=== PATIENT | female | born 1960 | race African-American/Black ===

== ENCOUNTER 2020-11-25 08:47 | Outpatient (CLI) | payer BC, SELFPAY ==
--- NOTE | 2020-11-25 08:54 | MM_ITS ---
WS: [id number] Bilateral screening digital mammogram, 11/25/2020 Clinical Data: SCREENING Comparison: 11/25/2017, 04/22/2015. Findings: The breast parenchymal pattern shows heterogeneous density No spiculated masses or clustered calcific ations are seen. There are no secondary signs of carcinoma. There are mole markers on both breasts. T here are small bilateral axillary lymph nodes. MM/[id number] Impression: 1. Negative bilateral mammogram unchanged. 2. Recommend annual screening mammograms. BIRADS: 1-Negative FOLLOW UP: 1 Year Follow-up The CAD freight checker was used.
== END 2020-11-25 08:48 | disposition home or self-care (01) ==
LOC: RADSHAW 08:52
PROVIDERS: PCP Family Medicine; Visit Provider Family Medicine
DX: Z12.31 Encounter for screening mammogram for malignant neoplasm of breast (principal)
CPT/HCPCS: 77067

== ENCOUNTER → 2021-12-14 15:01 | Outpatient (BNVA) | payer BC, SELFPAY | PROVIDERS: PCP Family Medicine; Visit Provider Family Medicine | DX: Z00.00 Encounter for general adult medical examination without abnormal findings (principal); D64.9 Anemia, unspecified; Z51.81 Encounter for therapeutic drug level monitoring; R73.9 Hyperglycemia, unspecified | CPT/HCPCS: 80053; 82728; 83036; 83550; 84466; 85025; 85651; 86140 ==

== ENCOUNTER 2022-10-01 14:02 | Outpatient (CLI) | payer BC, SELFPAY ==
--- NOTE | 2022-10-01 14:30 | MM_ITS ---
WS: [id number] BILATERAL 3D TOMOSYNTHESIS DIGITAL SCREENING MAMMOGRAPHY WITH CAD CLINICAL INFORMATION: Screening HISTORY: Screening mammogram. No current complaints. COMPARISON: November 25, 2020 TECHNIQUE: Bilateral CC and MLO views. FINDINGS: The breasts are composed of heterogeneous fibroglandular density tissue, which can limit the detectio n of small underlying mass lesions. No suspicious mass, asymmetry, calcifications, or architectural d istortion. No evidence of malignancy. Incidental punctate and lucent centered calcifications. Vascula [place] calcifications. MM/[id number] IMPRESSION: BI-RADS: 2-Benign FOLLOW UP: 1 Year Follow-up Recommend return to annual screening mammography.
== END 2022-10-01 14:03 | disposition home or self-care (01) ==
LOC: RAD 14:04
PROVIDERS: PCP Family Medicine; Visit Provider Family Medicine
DX: Z12.31 Encounter for screening mammogram for malignant neoplasm of breast (principal); D50.9 Iron deficiency anemia, unspecified; Z13.220 Encounter for screening for lipoid disorders; Z51.81 Encounter for therapeutic drug level monitoring
CPT/HCPCS: 77063; 77067; 80053; 80061; 83550; 85025